=== PATIENT | female | born 1955 | race Caucasian/White ===

== ENCOUNTER 2018-07-07 09:19 | Day surgery (SDC) | payer BC, MEDICARE ==
--- NOTE | 2018-07-07 06:55 | History and Physical - Fer[place] ---
CHIEF COMPLAINT/HISTORY OF CHIEF COMPLAINT: This patient presents with a history of an intractable cervical and lumbar radiculopathy. 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 A spinal opioid infusion system with Hydromorphone is in place. Over the last refills and reprogramming' s, battery depletion was noted. She is here for a pump battery replacement on an outpatient basis. PAST MEDICAL HISTORY: Chronic headaches, bronchitis, gastritis, degenerative arthritis, and sleep apnea. PAST SURGICAL HISTORY: Uterine surgery, ankle surgery, sinus surgery, and cervical spine fusion. MEDICATIONS ON ADMISSION: List to be provided. ALLERGIES: None. FAMILY/PSYCHOSOCIAL HISTORY: Social history - Smoking and caffeine. Family history - Hypothyroidism, diabetes, cerebrovascular disease, hypertension, and cancer. SYSTEMS REVIEW: The patient is appropriate in no acute distress. The remainder of the systems review is positive for chronic pain. PHYSICAL EXAMINATION: Height is 5'5", weight is 150. No vital signs. HEENT: Within normal limits. LUNGS: Clear. HEART: Regular rate and rhythm. ABDOMEN: Nontender. MUSCULOSKELETAL: Examination of the musculoskeletal system shows the pump in the right posterior gluteal margin. The incisional sites are intact. A cervical radicular component across shoulders, arms, hands and fingers. There are currently no motor abnormalities. No sensory field abnormalities. NEUROLOGIC: Cranial nerves are intact. IMPRESSION: 1. POST CERVICAL LAMINECTOMY SYNDROME, ICD-10 CODE M96.1 WITH CERVICAL RADICULOPATHY, ICD-10 CODE M54.12. 2. IMPLANTED SPINAL OPIOID INFUSION SYSTEM WITH HYDROMORPHONE, BATTER DEPLETION. PLAN: The patient is here on an outpatient basis for removal and replacement of the pump battery. The procedure will be considered outpatient, and no overnight stay will be necessary. No parameter changes will be made. JOB NUMBER: [id number] MTDD
[~2018-07-07 09:19] MED LIST: ACETAMINOPHEN 1,000 MG/100 ML BTL IV ONE; CEFAZOLIN 2 Gram 2 GM/50 ML BAG IVPB ONE; FAMOTIDINE 20MG TABLET PO ONE; HYDROMORPHONE HCL 0.6 GM in 0.9 % SODIUM CHLORIDE 10ML VIA 20 ML IV ONE; HYDROMORPHONE PF 2MG/ML AMP 0.008 MG in 0.9 % SODIUM CHLORIDE 10ML VIA 0.996 ML IV ONE; MECLIZINE 25 MG TABLET PO ONE; METOCLOPRAMIDE 10 MG TABLET PO ONE
[2018-07-07] MEDS ORDERED: CEFAZOLIN 1G VIAL IM ONE (09:20)
[2018-07-07] MEDS ORDERED: MIDAZOLAM HCL 2MG/2ML VIAL IV ONE (09:20)
[2018-07-07] MEDS ORDERED: FENTANYL PF 100MCG/2ML VIAL IV ONE (09:20)
[2018-07-07] MEDS ORDERED: 0.9 % SODIUM CHLORIDE 10 ML VIAL IVP ONE (09:20)
[2018-07-07] MEDS ORDERED: BUPIVACAINE 0.5% W/EPI MPF 30 ML VIAL IVP ONE (09:20)
[2018-07-07] MEDS ORDERED: LIDOCAINE 1% W/EPI 1:200,000 MPF 30ML SQ ONE (09:20)
[2018-07-07] MEDS ORDERED: PROPOFOL 10 MG/ML VIAL IV ONE (09:20)
[2018-07-07] MEDS ORDERED: OXYCODONE/APAP 10MG-325MG TABLET PO ONE (09:20)
[2018-07-07] MEDS ORDERED: LIDOCAINE 2% MDV (20MG/ML) 20ML VIAL IV ONE (09:20)
[2018-07-07] MEDS ORDERED: HYDROMORPHONE HCL 2 MG/ML VIAL IV ONE (09:20)
--- NOTE | 2018-07-07 21:16 | Operative Note ---
DATE OF SURGERY: 07/07/2018. PREOPERATIVE DIAGNOSES: 1. POST CERVICAL LAMINECTOMY SYNDROME, ICD-10 CODE =M96.1 WITH CERVICAL RADICULOPATHY, ICD-10 CODE = M54.12 AND LUMBAR RADICULOPATHY, ICD-10 CODE = M54.16. 2. SPINAL OPIOID INFUSION SYSTEM WITH HYDROMORPHONE, BATTERY DEPLETION. SURGERY: INCISION, SUBCUTANEOUS DISSECTION AND REMOVAL AND REPLACEMENT OF INTERNAL PROGRAMMABLE PUMP. SURGEON: LUISITO BLISS D.O. ANESTHESIA: LOCAL SEDATION. ANESTHESIA PROVIDER: ANNMARIE SURESH CRNA. INDICATIONS: This patient presents with a history of an intractable post cervical laminectomy radiculopathy. Her diagnostics do show plate and screw fusion in the cervical spine. A spinal catheter with pump and catheter position T5-6, a spinal infusion of Hydromorphone in place. Over the last number of refills and reprogrammings, battery depletion was identified. She is here for a pump/battery change. SURGERY: Intravenous line, vital sign monitoring, IV sedation, prepped and draped sterile technique, patient positioned prone. Previous incision at left posterior gluteal margin identified, marked, infiltrated, incision made and subcutaneous dissection was conducted to the pump Dacron sleeve. The sleeve was opened and the pump exteriorized. A curved #24 gauge Menard needle was inserted into the access port. I was unable to aspirate and clear the catheter of opioid. At that point, the new pump was back-table primed and placed onto the field. No diagnostics performed. The pump prefilled with Hydromorphone placed onto the field and intersected with the indwelling catheter. Antibiotic irrigation and Bovie for hemostasis. The pump was then placed into the pouch and the incision was closed using STRATAFIX suture #2-0 fascia, #3-0 skin. Dermabond closure. Complex programming resetting the original base rate and all alarm values. She was transported to the Recovery Room stable, no side-effects from the procedure or the sedation. DISCHARGE INSTRUCTIONS: 1. The site is to remain clean and dry. Although the Dermabond will allow showering, she should not sit in water. 2. Standard medications resumed including the antibiotic Levaquin 500 mg once a day for 14 days. 3. The office will contact the patient in 12 to 24 hours to set up an appointment in 7 to 10 days to evaluate the site. Until then, activities should stay controlled. All other instructions provided. Monitor for side effects including respiratory depression, nausea, vomiting, and constipation. She should contact the office with any problems for evaluation. cc: Dr. Faria JOB NUMBER: [id number] MTDD
== END 2018-07-07 13:20 | disposition home or self-care (01) ==
LOC: SUR 09:19 → MERGE 13:00 → SUR 13:20
PROVIDERS: ATTEND Pain Medicine Interventional Pain Medicine
DX: M96.1 Postlaminectomy syndrome, not elsewhere classified (principal); M54.12 Radiculopathy, cervical region; M54.16 Radiculopathy, lumbar region; I10 Essential (primary) hypertension; G25.81 Restless legs syndrome; K21.9 Gastro-esophageal reflux disease without esophagitis; F17.210 Nicotine dependence, cigarettes, uncomplicated
CPT/HCPCS: 62362; 00300; Q9967; J3010; J1170 ×2; J0690